=== PATIENT | male | born 1965 | race Caucasian/White ===

== ENCOUNTER 2025-06-25 06:14 | Day surgery (SDC) | payer OTHER, SELFPAY ==
[2025-06-09 11:37] LABS: Hematocrit 45.0 % (39.0-52.0); Hemoglobin 14.9 g/dL (13.0-18.0); Mean Corp Hgb Conc. 33.1 g/dL (33.0-37.0); Mean Corpuscular Volume 98.9 fL (80.0-94.0); Platelet Count 269 10^3/uL (130-400); Red Cell Dist. Width 13.0 % (11.5-14.5)
[2025-06-09 11:51] LABS: INR 2.40; PT 26.2 Sec (11.4-14.6)
[2025-06-09 11:52] LABS: APTT 34.2 Sec (23.4-35.0)
[2025-06-09 12:04] LABS: ALT (SGPT) 41 U/L (0-50); AST (SGOT) 46 U/L (17-59); Albumin 4.9 g/dl (3.5-5.0); Alkaline Phosphatase 67 U/L (38-126); Blood Urea Nitrogen 15 mg/dl (9-20); Calcium 10.3 mg/dl (8.4-10.2); Carbon Dioxide 33 mmol/L (22-30); Chloride 98 mmol/L (98-107); Glucose 143 mg/dl (70-99); Potassium 4.5 mmol/L (3.5-5.1); Sodium 139 mmol/L (135-145); Total Protein 8.3 g/dl (6.3-8.2); eGFR > 60.00
[2025-06-09 14:16] VITALS: BMI 31.7
--- NOTE | 2025-06-16 16:20 | PTCARENOTE ---
Maeve in office made aware of INR 2.4.
[2025-06-25] VITALS (9 sets, daily range): BP systolic 101–125; BP diastolic 66–81; BMI 31.7
[2025-06-25 08:04] LABS: Glucose - Point of Care 150 mg/dl (70-99)
[2025-06-25] MEDS: NORMOSOL-R/PLASMALYTE-A 1000 IV (08:19)
[2025-06-25 10:07] LABS: Glucose - Point of Care 174 mg/dl (70-99)
[2025-06-25] MEDS: ROXICODONE 5 MG PO (11:28)
== END 2025-06-25 11:53 | disposition home or self-care (01) ==
LOC: SDS 06:14
PROVIDERS: ATTENDING PHYSICIAN Otolaryngology; FAMILY PHYSICIAN Family Medicine; OTHER PHYSICIAN Internal Medicine Cardiovascular Disease
DX: J32.2 Chronic ethmoidal sinusitis (principal); J34.2 Deviated nasal septum
CPT/HCPCS: 31254; 36415; 80053; 82962; 85027; 85610; 85730; 87070; 87075; 87077; 87147; 87205; 88304; 88311; 88312